=== PATIENT | female | born 1960 | race Caucasian/White ===

== ENCOUNTER 2016-12-31 13:28 | Observation (INO) | payer BC ==
[2016-12-31] MEDS ORDERED: Sodium Chloride 0.9% 10 ML Syringe FLUSH PRN (13:42)
--- NOTE | 2016-12-31 14:12 | EDM.PDOC ---
ED HPI GENERAL MEDICAL PROBLEM - General Chief Complaint: General Stated Complaint: elevated potassium, heart palpatations Time Seen by Provider: 12/31/16 13:32 Source of Information: Reports: Patient History Limitations: Reports: No Limitations - History of Present Illness INITIAL COMMENTS - FREE TEXT/NARRATIVE: Patient sent to ER due to hyperkalemia (5.9) that was noted at [facility] visit. Patient was at clinic for routine physical. Says she needed it prior to seeing from Internal Medicine. She had no specific complaints or changes related to today's clinic visit. Denies new medicines/supplements/dietary changes. No recent illnesses. When asked if anything else has changed, she thinks that she may be having some more palpitations and muscles cramps that "usual". No history of hyperkalemia in past. - Related Data Allergies Allergy/AdvReac Type Severity Reaction Status Date / Time cephalexin [From Keflex] Allergy Rash Verified 12/31/16 13:31 ciprofloxacin [From Cipro] Allergy Rash Verified 12/31/16 13:31 Latex, Natural Rubber Allergy Rash Verified 12/31/16 13:31 [id number] Reductase Allergy Muscle Verified 12/31/16 13:31 Inhibitor Aches Home Meds: Home Meds Aspirin [Children's Aspirin] 81 mg PO DAILY 12/31/16 [History] Azelaic Acid [Finacea] 1 applic TOP DAILY 12/31/16 [History] Cholecalciferol (Vitamin D3) [Vitamin D3] 2,000 unit PO QAM 12/31/16 [History] Clopidogrel Bisulfate [Clopidogrel] 75 mg PO QAM 12/31/16 [History] Cyanocobalamin/FA/Pyridoxine [Folbic] 1 tab PO MOWEFR@0800 12/31/16 [History] Diclofenac Sodium 1 applic TOP TID PRN 12/31/16 [History] Divalproex Sodium [Depakote ER] 250 mg PO BID 12/31/16 [History] Divalproex Sodium [Divalproex Sodium ER] 250 mg PO DAILY PRN 12/31/16 [History] Enalapril Maleate [Enalapril Maleate] 20 mg PO QAM 12/31/16 [History] Fluconazole [Diflucan] 150 mg PO DAILY PRN 12/31/16 [History] Gabapentin [Neurontin] 3 tab PO BEDTIME 12/31/16 [History] Gabapentin [Neurontin] 300 mg PO BEDTIME PRN 12/31/16 [History] Iron,Carbonyl/Ascorbic Acid [Vitron-C Tablet] 1 tab PO BID 12/31/16 [History] Isosorbide Mononitrate [Imdur] 60 mg PO BID 12/31/16 [History] Linagliptin [Tradjenta] 5 mg PO QAM 12/31/16 [History] Metoprolol Succinate 25 mg PO BID 12/31/16 [History] Nitroglycerin [Nitrostat] 0.4 mg PO ASDIRECTED PRN 12/31/16 [History] Pantoprazole Sodium 40 mg PO QAM 12/31/16 [History] Spironolactone [Aldactone] 25 mg PO TID 12/31/16 [History] Venlafaxine HCl [Venlafaxine ER] 150 mg PO QAM 12/31/16 [History] metFORMIN HCl [Metformin HCl] 500 mg PO BID 12/31/16 [History] traZODone 50 mg PO BEDTIME PRN 12/31/16 [History] traZODone HCl [Trazodone HCl] 50 mg PO BEDTIME 12/31/16 [History] Past Medical History Cardiovascular History: Reports: CAD, Hypertension, [place], Stents Gastrointestinal History: Reports: GERD Neurological History: Reports: Migraines, Neuropathy, Peripheral Psychiatric History: Reports: Anxiety, Depression Endocrine/Metabolic History: Reports: Diabetes, Type II Dermatologic History: Reports: Other (See Below) (Rosacea) - Past Surgical History GI Surgical History: Reports: Bariatric Procedure Social & Family History - Family History HEENT: Reports: Impaired Vision Cardiac: Reports: CAD, High Cholesterol, Hypertension, [place] Psychiatric: Reports: Anxiety, Depression Endocrine/Metabolic: Reports: Diabetes, type II Oncologic: Reports: Colon, Lung, Skin - Tobacco Use Smoking Status *Q: Never Smoker Second Hand Smoke Exposure: Yes - Caffeine Use Caffeine Use: Reports: Other (yes) - Alcohol Use Total Drinks Per Week Comment: Rare alcohol - Recreational Drug Use Recreational Drug Use: No Drug Use in Last 12 Months: No ED ROS GENERAL - Review of Systems Review Of Systems: See Below Constitutional: Reports: No Symptoms HEENT: Reports: Glasses Respiratory: Reports: No Symptoms Cardiovascular: Reports: Palpitations (intermittent palpitations, long standing. ). Denies: Chest Pain, Dyspnea on Exertion, Lightheadedness, Syncope GI/Abdominal: Reports: No Symptoms, Other (history of gastric bypass, can have irritable gut/stools depending one what she eats. ) : Reports: No Symptoms Musculoskeletal: Reports: Other (long standing intermittent muscle cramps) Skin: Reports: No Symptoms Neurological: Reports: Numbness (long standing neuropathy) Psychiatric: Reports: No Symptoms Hematologic/Lymphatic: Reports: No Symptoms ED EXAM, GENERAL - Physical Exam Exam: See Below Exam Limited By: No Limitations General Appearance: Alert, WD/WN, No Apparent Distress Eye Exam: Bilateral Eye: EOMI, PERRL Ears: Normal External Exam Nose: Normal Inspection Throat/Mouth: Normal Inspection, Normal Voice, No Airway Compromise Head: Atraumatic, Normocephalic Neck: Normal Inspection, Supple, Non-Tender, Full Range of Motion Respiratory/Chest: No Respiratory Distress, Lungs Clear, Normal Breath Sounds, No Accessory Muscle Use Cardiovascular: Normal Peripheral Pulses, Regular Rate, Rhythm, No Murmur Peripheral Pulses: 2+: Radial (L), Radial (R), Dorsalis Pedis (L), Dorsalis Pedis (R) GI/Abdominal: Normal Bowel Sounds, Soft, Non-Tender, No Distention (Female) Exam: Deferred Rectal (Female) Exam: Deferred Back Exam: Normal Inspection Extremities: Normal Inspection, Normal Range of Motion, Non-Tender, Normal Capillary Refill, Pedal Edema (minimal) Neurological: Alert, Oriented, Normal Cognition, Normal Gait, Other ( neuromuscular tone appropriate x4) Psychiatric: Normal Affect, Normal Mood Skin Exam: Warm, Dry, Intact, Normal Color EKG INTERPRETATION EKG Date: 12/31/16 Time: 13:48 Rhythm: NSR Rate (Beats/Min): 70 [place]: Normal P-Wave: Present QRS: Normal ST-T: Normal QT: Normal Comparison: NA - No Prior EKG Course - Vital Signs Last Recorded V/S: Last Vital Signs Temp 36.7 C 12/31/16 13:32 Pulse 76 12/31/16 13:32 Resp 16 12/31/16 13:32 BP 156/73 H 12/31/16 13:32 Pulse Ox 97 12/31/16 13:32 - Orders/Labs/Meds Orders: Active Orders 24 hr Category Date Time Status EKG Documentation Completion [RC] ASDIRECTED Care 12/31/16 13:43 Ordered CBC WITH AUTO DIFF [HEME] Stat Lab 12/31/16 13:42 Ordered COMPREHENSIVE METABOLIC PN,CMP [CHEM] Stat Lab 12/31/16 13:42 Ordered D-DIMER QUANTITATIVE [COAG] Stat Lab 12/31/16 13:43 Ordered MG [MAGNESIUM] [CHEM] Stat Lab 12/31/16 13:43 Ordered TROPONIN I [CHEM] Stat Lab 12/31/16 13:43 Ordered UA W/MICROSCOPIC [URIN] Stat Lab 12/31/16 13:42 Uncollected Sodium Chloride 0.9% [Saline Flush] Med 12/31/16 13:42 Ordered 10 ml FLUSH ASDIRECTED PRN Saline Lock Insert [OM.PC] Stat Oth 12/31/16 13:42 Ordered EKG 12 Lead [EK] Stat Ther 12/31/16 13:43 Ordered Medication Orders Sodium Chloride (Saline Flush) 10 ml FLUSH ASDIRECTED PRN PRN Reason: Keep Vein Open Meds: Medications Generic Name Dose Route Start Last Admin Trade Name Freq PRN Reason Stop Dose Admin Sodium Chloride 10 ml 12/31/16 13:42 Saline Flush FLUSH ASDIRECTED PRN Keep Vein Open - Re-Assessments/Exams Free Text/Narrative Re-Assessment/Exam: Potassium level noted to be 6.3 Also noted to have elevated BUN/Cr. CBC normal. Admitted observation for treatment of hyperkalemia. Departure - Departure Time of Disposition: 15:00 Disposition: Refer to Observation Clinical Impression: Hyperkalemia - Discharge Information Referrals: Claus Yancey MD [Primary Care Provider] - - Problem List & Annotations (1) Hyperkalemia SNOMED Code(s): 58156805 Code(s): E87.5 - HYPERKALEMIA Status: Acute Priority: High Current Visit: Yes Onset Date: Unknown Annotation/Comment:: Uncertain how long patient has had elevated potassium. States last labwork performed about a year ago. Renal insufficiency and Spironolactone may be contributing to elevated level. Will decrease Spironolactone dose while on observation. Plan at this time is to give Kayexalate and continue to monitor potassium level. (2) CAD (coronary artery disease) SNOMED Code(s): 40342995 Code(s): I25.10 - ATHSCL HEART DISEASE OF [place] CORONARY ARTERY W/O ANG PCTRS Status: Chronic Priority: Low Current Visit: No Annotation/Comment :: History of stent placement. (3) HTN (hypertension) SNOMED Code(s): 68622789 Code(s): I10 - ESSENTIAL (PRIMARY) HYPERTENSION Status: Chronic Priority : Low Current Visit: Yes (4) Depression SNOMED Code(s): 34702346 Code(s): F32.9 - MAJOR DEPRESSIVE DISORDER, SINGLE EPISODE, UNSPECIFIED Status: Chronic Priority: Low Current Visit: No (5) Rosacea SNOMED Code(s): 524085301 Code(s): L71.9 - ROSACEA, UNSPECIFIED Status: Chronic Priority: Low Current Visit: No (6) H/O bariatric surgery SNOMED Code(s): 402431338 Code(s): Z98.84 - BARIATRIC SURGERY STATUS Status: Chronic Priority: Low Current Visit: No (7) History of migraine SNOMED Code(s): 433448256 Code(s): Z86.69 - PERSONAL HISTORY OF DIS OF THE NERVOUS SYS AND SENSE ORGANS Status: Chronic Current Visit: No (8) GERD (gastroesophageal reflux disease) SNOMED Code(s): 958702134 Code(s): K21.9 - GASTRO-ESOPHAGEAL REFLUX DISEASE WITHOUT ESOPHAGITIS Status: Chronic Priority: Low Current Visit: No (9) Diabetes SNOMED Code(s): 13762139 Code(s): E11.9 - TYPE 2 DIABETES MELLITUS WITHOUT COMPLICATIONS Status: Chronic Priority: Low Current Visit: Yes Qualifiers: Diabetes mellitus type: type 2 (10) Peripheral neuropathy SNOMED Code(s): 821871186 Code(s): G62.9 - POLYNEUROPATHY, UNSPECIFIED Status: Chronic Priority: Low Current Visit: No (11) Renal insufficiency SNOMED Code(s): 751964002 Code(s): N28.9 - DISORDER OF KIDNEY AND URETER, UNSPECIFIED Status: Acute Priority: Medium Current Visit: Yes Onset Date: Unknown Annotation/ Comment:: Elevated BUN/Cr noted today. Patient denies any problems previously. - Problem List Review Problem List Initiated/Reviewed/Updated: Yes - My Orders Last 24 Hours: My Active Orders 12/31/16 13:42 CBC WITH AUTO DIFF [HEME] Stat COMPREHENSIVE METABOLIC PN,CMP [CHEM] Stat UA W/MICROSCOPIC [URIN] Stat Sodium Chloride 0.9% [Saline Flush] 10 ml FLUSH ASDIRECTED PRN Saline Lock Insert [OM.PC] Stat 12/31/16 13:43 EKG Documentation Completion [RC] ASDIRECTED D-DIMER QUANTITATIVE [COAG] Stat MG [MAGNESIUM] [CHEM] Stat TROPONIN I [CHEM] Stat EKG 12 Lead [EK] Stat - Assessment/Plan Admission H&P: Please use this note as an admission H&P Last 24 Hours: My Active Orders 12/31/16 13:42 CBC WITH AUTO DIFF [HEME] Stat COMPREHENSIVE METABOLIC PN,CMP [CHEM] Stat UA W/MICROSCOPIC [URIN] Stat Sodium Chloride 0.9% [Saline Flush] 10 ml FLUSH ASDIRECTED PRN Saline Lock Insert [OM.PC] Stat 12/31/16 13:43 EKG Documentation Completion [RC] ASDIRECTED D-DIMER QUANTITATIVE [COAG] Stat MG [MAGNESIUM] [CHEM] Stat TROPONIN I [CHEM] Stat EKG 12 Lead [EK] Stat Assessment:: Hyperkalemia in patient with multiple medical problems and newly observed renal insufficiency. Plan: Admitted Observation. Will continue to monitor while giving kayexalate. Spironolactone dose decreased from TID to BID. Patient is scheduled to follow up with Internal Medicine next week for continued care of her chronic medical conditions.
[2016-12-31 14:27] LABS: CHLORIDE,CL 106 mmol/L (98-107); SODIUM,NA 139 mmol/L (136-145)
[2016-12-31] MEDS ORDERED: Sodium Polystyrene Sulfonate 15 GM/60 ML Susp 60 ML Bot PO ONE ×3 (15:13→22:00)
[2016-12-31] MEDS ORDERED: Sodium Chloride 0.9% 1,000 ML IV ONE (15:15)
[2016-12-31] MEDS ORDERED: Divalproex Sodium 250 MG Tab.ER PO PRN (15:19)
[2016-12-31] MEDS ORDERED: Gabapentin 300 MG Cap PO PRN (15:19)
[2016-12-31] MEDS ORDERED: Nitroglycerin 0.4 MG Tab.SL SL PRN (15:19)
[2016-12-31] MEDS ORDERED: Non-Formulary Medication 1 Each (Diclofenac Sodium [Diclofenac Sodium] 1 APPLIC) TOP PRN (15:19)
[2016-12-31] MEDS ORDERED: traZODone 50 MG Tab PO PRN (15:19)
[2016-12-31] MEDS ORDERED: Acetaminophen 325 MG Tab PO PRN (16:00)
[2016-12-31] MEDS: Spironolactone 25 MG Tab PO SCH (17:08)
[2016-12-31] MEDS: metFORMIN 500 MG Tab PO SCH (17:08)
[2016-12-31] MEDS: Isosorbide Mononitrate 60 MG Tab.ER PO SCH (17:08)
[2016-12-31] MEDS: Metoprolol Succinate 25 MG Tab.ER PO SCH (17:08)
[2016-12-31] MEDS: Divalproex Sodium 250 MG Tab.ER PO SCH (17:08)
[2016-12-31] MEDS ORDERED: Gabapentin 300 MG Cap PO SCH (20:00)
[2016-12-31] MEDS ORDERED: traZODone 50 MG Tab PO SCH (20:00)
[2017-01-01] MEDS: Divalproex Sodium 250 MG Tab.ER PO SCH (07:44)
[2017-01-01] MEDS: Isosorbide Mononitrate 60 MG Tab.ER PO SCH (07:46)
[2017-01-01] MEDS: metFORMIN 500 MG Tab PO SCH (07:46)
[2017-01-01] MEDS: Spironolactone 25 MG Tab PO SCH (07:48)
[2017-01-01] MEDS: Metoprolol Succinate 25 MG Tab.ER PO SCH (07:49)
[2017-01-01] MEDS ORDERED: Aspirin 81 MG Tab.Chew PO SCH (08:00)
[2017-01-01] MEDS ORDERED: Enalapril 5 MG Tab PO SCH (08:00)
[2017-01-01] MEDS ORDERED: Clopidogrel 75 MG Tab PO SCH (08:00)
[2017-01-01] MEDS ORDERED: Pantoprazole 40 MG Tab.CR PO SCH (08:00)
[2017-01-01] MEDS ORDERED: Venlafaxine 75 MG Cap.ER PO SCH (08:00)
--- NOTE | 2017-01-01 09:20 | PCM.DCSUM1 ---
Discharge Summary - Hospital Course HPI Initial Comments: See Emergency room note/admission H&P Brief History: See emergency room note/admission H&P - Discharge Data Discharge Date: 01/01/17 Discharge Disposition: Home, Self-Care 01 Condition: Good - Discharge Diagnosis/Problem(s) (1) Hyperkalemia SNOMED Code(s): 78973689 ICD Code: E87.5 - HYPERKALEMIA Status: Acute Priority: High Current Visit: Yes Onset Date: Unknown Problem Details: Excellent results with Kayexalate therapy with normal potassium level this morning. Her creatinine level has also improved with decreased spironolactone therapy. Various therapeutic options were discussed with the patient, including initiation of additional low-dose Lasix therapy and continued decreased spironolactone at discharge. Patient does not wish to have any additional diuretic at this time with spironolactone apparently prescribed for dependent edema? She denies any previous history of CHF. Patient is both on enalapril and spironolactone, which can cause hyperkalemia and decreased renal function. Close follow-up by her regular provider with appointment already scheduled for 01/06. Follow-up blood work as per discharge instructions. Patient may need further workup and treatment, including echocardiogram, additional Lasix therapy, etc. depending on her follow-up blood work results. She does not need a work excuse by her history (2) Renal insufficiency SNOMED Code(s): 975791215 ICD Code: N28.9 - DISORDER OF KIDNEY AND URETER, UNSPECIFIED Status: Acute Priority: Medium Current Visit: Yes Onset Date: Unknown Problem Details : Improved renal profile today as above. Note probable diabetic nephropathy with history of diabetes as below (3) HTN (hypertension) SNOMED Code(s): 09711818 ICD Code: I10 - ESSENTIAL (PRIMARY) HYPERTENSION Status: Chronic Priority : Medium Current Visit: Yes Problem Details: Blood pressures were under good control during this hospitalization despite decrease of her spironolactone with close follow-up by her regular provider as above Qualifiers: Hypertension type: essential hypertension Qualified Code(s): I10 - Essential (primary) hypertension (4) CAD (coronary artery disease) SNOMED Code(s): 86527500 ICD Code: I25.10 - ATHSCL HEART DISEASE OF [place] CORONARY ARTERY W/O ANG PCTRS Status: Chronic Priority: Medium Current Visit: Yes Problem Details: No chest pain or anginal complaints, including prior to admission. No activity restrictions at this time. Continued close follow-up by her regular provider. Note status post PTCA/stent (5) GERD (gastroesophageal reflux disease) SNOMED Code(s): 782081205 ICD Code: K21.9 - GASTRO-ESOPHAGEAL REFLUX DISEASE WITHOUT ESOPHAGITIS Status: Chronic Priority: Medium Current Visit: Yes Problem Details: Stable by history. Consider change of her pantoprazole therapy to Pepcid at follow up with her regular provider secondary to her previous history of PTCA/ stent and current Plavix therapy Qualifiers: Esophagitis presence: without esophagitis Qualified Code(s): K21.9 - Gastro -esophageal reflux disease without esophagitis (6) Peripheral neuropathy SNOMED Code(s): 455940322 ICD Code: G62.9 - POLYNEUROPATHY, UNSPECIFIED Status: Chronic Priority: Medium Current Visit: Yes Problem Details: Stable by history. Probable diabetic nephropathy component. Current Neurontin therapy needs to be clarified at follow-up Qualifiers: Peripheral neuropathy type: polyneuropathy, other Qualified Code(s): G62.89 - Other specified polyneuropathies (7) Diabetes mellitus SNOMED Code(s): 16414106 ICD Code: E11.9 - TYPE 2 DIABETES MELLITUS WITHOUT COMPLICATIONS Status: Chronic Priority: Medium Current Visit: Yes Problem Details: Stable by history. Close follow-up by regular providers, including her renal function, etc. as above Qualifiers: Diabetes mellitus type: type 2 Diabetes mellitus complication status: with kidney complications Diabetes mellitus complication detail: with chronic kidney disease Diabetes mellitus watermelon inspector insulin use: without residential use Chronic kidney disease stage: stage 2 (mild) Qualified Code(s): E11.22 - Type 2 diabetes mellitus with diabetic chronic kidney disease; N18.2 - Chronic kidney disease, stage 2 (mild); N18.2 - Chronic kidney disease, stage 2 (mild) (8) Osteoarthritis SNOMED Code(s): 512039883 ICD Code: M19.90 - UNSPECIFIED OSTEOARTHRITIS, UNSPECIFIED SITE Status: Chronic Priority: Medium Current Visit: Yes Problem Details: Stable by history Qualifiers: Osteoarthritis location: multiple joints Osteoarthritis type: primary Qualified Code(s): M15.0 - Primary generalized (osteo)arthritis (9) Microhematuria SNOMED Code(s): 658222755 ICD Code: R31.29 - OTHER MICROSCOPIC HEMATURIA Status: Acute Priority: Medium Current Visit: Yes Onset Date: 12/31/16 Problem Details: UA did show some microhematuria, however the patient denies any UTI symptoms. I did order urine culture and sensitivity today from same specimen with antibiotic therapy depending on these results - Patient Summary/Data Operative Procedure(s) Performed: None Complications: None Consults: None Labs Pending at D/C: Urine culture and sensitivity results as above Recommended Follow-up Testing/Procedures: As per discharge instructions Planned Operative Procedure(s) after DC: None Hospital Course: Patient was admitted to observation status on telemetry for her hyperkalemia with excellent results with Kayexalate therapy and decreased spironolactone therapy from a 3 times a day to twice a day basis as above. Patient denies any chest pain or anginal type symptoms during this hospitalization. No arrhythmia during this hospital course. Patient did have normal bowel movements at time of discharge with no abdominal complaints, hematochezia melena, etc. Close follow- up by her regular provider as per discharge instructions and as above - Patient Instructions Diet: Heart Healthy Diet Activity: As Tolerated Driving: May Drive Today Showering/Bathing: May Shower Notify Provider of: Nausea and/or Vomiting Other/Special Instructions: 1. Follow-up with your regular provider as already scheduled on 01/06 and contact his office later today concerning recommended blood work as below prior to that appointment. 2. CBC, comprehensive metabolic panel, BNP, CK, CK-MB, and troponin I recommended immediately prior to the above follow-up visit. 3. Discuss at the follow-up visit possible further workup and treatment, including possible echocardiogram, additional low- dose Lasix therapy, etc. depending on your follow-up blood work, etc. 4. Also discuss at the above follow-up the possibility of changing your pantoprasole to Pepcid secondary to your current Plavix therapy and history of PTCA/stent. 5. Clarify your gabapentin dose at follow-up. 6. Your urine has been set up for culture and sensitivity. Notify this facility, if you have not heard about these results within the next 72 hours and/or if you become symptomatic - Discharge Plan Home Medications: Home Meds Aspirin [Children's Aspirin] 81 mg PO DAILY 12/31/16 [History] Azelaic Acid [Finacea] 1 applic TOP DAILY 12/31/16 [History] Cholecalciferol (Vitamin D3) [Vitamin D3] 2,000 unit PO QAM 12/31/16 [History] Clopidogrel Bisulfate [Clopidogrel] 75 mg PO QAM 12/31/16 [History] Cyanocobalamin/FA/Pyridoxine [Folbic] 1 tab PO MOWEFR@0800 12/31/16 [History] Diclofenac Sodium 1 applic TOP TID PRN 12/31/16 [History] Divalproex Sodium [Depakote ER] 250 mg PO BID 12/31/16 [History] Divalproex Sodium [Divalproex Sodium ER] 250 mg PO DAILY PRN 12/31/16 [History] Enalapril Maleate 20 mg PO QAM 12/31/16 [History] Fluconazole [Diflucan] 150 mg PO DAILY PRN 12/31/16 [History] Gabapentin [Neurontin] 3 tab PO BEDTIME 12/31/16 [History] Gabapentin [Neurontin] 300 mg PO BEDTIME PRN 12/31/16 [History] Iron,Carbonyl/Ascorbic Acid [Vitron-C Tablet] 1 tab PO BID 12/31/16 [History] Isosorbide Mononitrate [Imdur] 60 mg PO BID 12/31/16 [History] Linagliptin [Tradjenta] 5 mg PO QAM 12/31/16 [History] Metoprolol Succinate 25 mg PO BID 12/31/16 [History] Nitroglycerin [Nitrostat] 0.4 mg PO ASDIRECTED PRN 12/31/16 [History] Pantoprazole Sodium 40 mg PO QAM 12/31/16 [History] Venlafaxine HCl [Venlafaxine ER] 150 mg PO QAM 12/31/16 [History] metFORMIN HCl [Metformin HCl] 500 mg PO BID 12/31/16 [History] traZODone 50 mg PO BEDTIME PRN 12/31/16 [History] traZODone HCl [Trazodone HCl] 50 mg PO BEDTIME 12/31/16 [History] Acetaminophen [Tylenol] 650 mg PO Q4H PRN #100 tablet 01/01/17 [Rx] Spironolactone [Aldactone] 25 mg PO BID tablet 01/01/17 [Rx] Patient Handouts: Hyperkalemia Forms: ED Department Discharge Referrals: Claus Yancey MD [Primary Care Provider] - - Discharge Summary/Plan Comment DC Time >30 min.: Yes (Coordination of care) Discharge Summary/Plan Comment: As above. Extensive precautions were given to the patient, who is in agreement with the treatment plan. See Patient Instructions for further treatment and plan. - General Info Date of Service: 01/01/17 Admission Dx/Problem (Free Text: Hyperkalemia Functional Status: Reports: Pain Controlled, Tolerating Diet, Ambulating, Urinating. Denies: New Symptoms, Incentive Spirometry Numeric/FACES Score: 0 - Review of Systems General: Reports: No Symptoms. Denies: Fever, Weakness, Fatigue, Malaise, Chills, Night Sweats, Appetite (Appetite good) HEENT: Reports: No Symptoms. Denies: Eye Pain, Headaches, Post Nasal Drip, Sinus Congestion, Sore Throat, Rhinitis, Visual Changes Pulmonary: Reports: No Symptoms. Denies: Shortness of Breath, Pleuritic Chest Pain, Cough, Sputum, Hemoptysis, Wheezing Cardiovascular: Reports: No Symptoms. Denies: Chest Pain, Palpitations, Dyspnea on Exertion, Orthopnea, PND, Edema, Lightheadedness Gastrointestinal: Reports: No Symptoms. Denies: Abdominal Pain, Constipation, Decreased Appetite, Diarrhea, Difficulty Swallowing, Flatus, Hematochezia, Melena, Nausea, Vomiting Genitourinary: Reports: No Symptoms. Denies: Dysuria, Frequency, Burning, Pain , Urgency, Hematuria, Retention, Flank Pain Musculoskeletal: Reports: No Symptoms. Denies: Neck Pain, Shoulder Pain, Arm Pain, Back Pain, Leg Pain Skin: Reports: No Symptoms. Denies: Diaphoresis, Bruising Neurological: Reports: No Symptoms. Denies: Confusion, Dizziness, Headache, Numbness, Paresthesia, Seizure, Syncope, Tingling, Weakness Psychiatric: Reports: No Symptoms. Denies: Confusion, Depression, Anxiety, Agitation, Cravings, Hallucinations, Suicidal Ideation, Homicidal Ideation - Patient Data Vitals - Most Recent: Last Vital Signs Temp 36.8 C 01/01/17 06:00 Pulse 61 01/01/17 07:49 Resp 15 01/01/17 06:00 BP 124/70 01/01/17 07:53 Pulse Ox 95 01/01/17 06:00 Vital Signs (72 hours) 12/31/16 12/31/16 12/31/16 13:32 13:42 14:00 Temperature [ Oral] Temperature [ 36.7 C Temporal] Pulse, Peripheral Pulse, 76 72 76 Peripheral [ Left Pulse Oximetry] Respiratory 16 15 17 Rate Blood Pressure Blood Pressure 156/73 H 139/72 149/77 H [Left Upper Arm ] O2 Sat by Pulse 97 98 99 Oximetry 12/31/16 12/31/16 12/31/16 14:15 14:30 14:45 Temperature [ Oral] Temperature [ Temporal] Pulse, Peripheral Pulse, 70 72 71 Peripheral [ Left Pulse Oximetry] Respiratory 13 12 16 Rate Blood Pressure Blood Pressure 152/64 H 152/74 H 152/97 H [Left Upper Arm ] O2 Sat by Pulse 100 100 100 Oximetry 12/31/16 12/31/16 12/31/16 15:00 17:08 21:18 Temperature [ 36.9 C Oral] Temperature [ 36.4 C Temporal] Pulse, 85 Peripheral Pulse, 67 75 Peripheral [ Left Pulse Oximetry] Respiratory 16 16 Rate Blood Pressure 144/77 H Blood Pressure 141/77 H 122/90 [Left Upper Arm ] O2 Sat by Pulse 100 98 Oximetry 01/01/17 01/01/17 01/01/17 06:00 07:49 07:53 Temperature [ 36.8 C Oral] Temperature [ Temporal] Pulse, 61 Peripheral Pulse, 61 Peripheral [ Left Pulse Oximetry] Respiratory 15 Rate Blood Pressure 124/70 124/70 Blood Pressure 124/70 [Left Upper Arm ] O2 Sat by Pulse 95 Oximetry Weight - Most Recent: 73.936 kg I&O - Last 24 hours: Intake & Output 12/31/16 01/01/17 01/01/17 22:59 06:59 14:59 Intake Total 700 720 Output Total 750 Balance -50 720 Imaging Impressions - Last 24 hrs: 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 shows normal sinus rhythm with heart rate in the 60s to 70s with no ectopy or arrhythmia EKG yesterday showed no acute ischemic changes with T-wave inversion in leads 3 and V1 with poor R-wave progression in the anterior leads Lab Results - Last 24 hrs: Laboratory Results - last 24 hr 12/31/16 12/31/16 01/01/17 Range/Units 16:15 21:05 07:35 Sodium 142 (136-145) mmol/L Potassium 4.7 D 4.6 (3.5-5.1) mmol/L Chloride 109 H (98-107) mmol/L Carbon Dioxide 27.7 (21.0-32.0) mmol/L BUN 15 (7-18) mg/dL Creatinine 1.33 H (0.51-1.17) mg/dL Est Cr Clr Drug Dosing 42.32 mL/min Estimated GFR (MDRD) 41 mL/min Glucose 156 H (74-106) mg/dL Calcium 8.5 (8.5-10.1) mg/dL Specimen Type Urinblad Urine Color Yellow Urine Appearance Clear Urine pH 7.5 (5.0-9.0) Ur Specific [place] 1.020 (1.005-1.030) Urine Protein Negative (NEGATIVE) mg/dL Urine Glucose (UA) Negative (NEGATIVE) mg/dL Urine Ketones Negative (NEGATIVE) mg/dL Urine Occult Blood Negative (NEGATIVE) Urine Nitrite Negative (NEGATIVE) Urine Bilirubin Negative (NEGATIVE) Urine Urobilinogen 1.0 (0.2-1.0) E.U./dL Ur Leukocyte Esterase Negative (NEGATIVE) Urine RBC 5-10 H /HPF Urine WBC 0-5 /HPF Ur Epithelial Cells Few /LPF Urine Bacteria Few (NONE TO FEW) /HPF Laboratory Tests 12/31/16 12/31/16 12/31/16 Range/Units 14:05 14:05 14:05 WBC 5.2 (4.0-10.2) K/uL RBC 4.11 (3.77-5.09) M/uL Hgb 12.0 (11.7-15.5) g/dL Hct 35.9 (34.0-46.0) % MCV 87.3 (84.0-98.0) fL MCH 29.2 (28.2-33.3) pg MCHC 33.4 (31.7-36.0) g/dL RDW 13.5 (11.2-14.1) % Plt Count 253 (150-350) K/uL Neut % (Auto) 59.8 (45.0-80.0) % Lymph % (Auto) 27.6 (10.0-50.0) % [place] % (Auto) 10.3 (2.0-14.0) % Eos % (Auto) 1.9 (0.0-5.0) % Baso % (Auto) 0.4 (0.0-2.0) % Neut # (Auto) 3.12 (1.40-7.00) K/uL Lymph # (Auto) 1.44 (0.50-3.50) K/uL [place] # (Auto) 0.54 (0.00-1.00) K/uL Eos # (Auto) 0.10 (0.00-0.50) K/uL Baso # (Auto) 0.02 (0.00-0.20) K/uL D-Dimer, Quantitative 258 (0-400) ng/mL Sodium 139 (136-145) mmol/L Potassium 6.3 H* (3.5-5.1) mmol/L Chloride 106 (98-107) mmol/L Carbon Dioxide 25.8 (21.0-32.0) mmol/L BUN 19 H (7-18) mg/dL Creatinine 1.71 H (0.51-1.17) mg/dL Est Cr Clr Drug Dosing TNP Estimated GFR (MDRD) 31 mL/min Glucose 148 H (74-106) mg/dL Calcium 8.8 (8.5-10.1) mg/dL Magnesium 1.9 (1.8-2.4) mg/dL Total Bilirubin 0.3 (0.2-1.0) mg/dL AST 21 (15-37) U/L ALT 26 (12-78) U/L Alkaline Phosphatase 110 (46-116) IU/L Troponin I 0.000 (0.000-0.056) ng/mL Total Protein 7.4 (6.4-8.2) g/dL Albumin 3.5 (3.4-5.0) g/dL Specimen Type Urine Color Urine Appearance Urine pH (5.0-9.0) Ur Specific [place] (1.005-1.030) Urine Protein (NEGATIVE) mg/dL Urine Glucose (UA) (NEGATIVE) mg/dL Urine Ketones (NEGATIVE) mg/dL Urine Occult Blood (NEGATIVE) Urine Nitrite (NEGATIVE) Urine Bilirubin (NEGATIVE) Urine Urobilinogen (0.2-1.0) E.U./dL Ur Leukocyte Esterase (NEGATIVE) Urine RBC /HPF Urine WBC /HPF Ur Epithelial Cells /LPF Urine Bacteria (NONE TO FEW) /HPF 12/31/16 12/31/16 01/01/17 Range/Units 16:15 21:05 07:35 WBC (4.0-10.2) K/uL RBC (3.77-5.09) M/uL Hgb (11.7-15.5) g/dL Hct (34.0-46.0) % MCV (84.0-98.0) fL MCH (28.2-33.3) pg MCHC (31.7-36.0) g/dL RDW (11.2-14.1) % Plt Count (150-350) K/uL Neut % (Auto) (45.0-80.0) % Lymph % (Auto) (10.0-50.0) % [place] % (Auto) (2.0-14.0) % Eos % (Auto) (0.0-5.0) % Baso % (Auto) (0.0-2.0) % Neut # (Auto) (1.40-7.00) K/uL Lymph # (Auto) (0.50-3.50) K/uL [place] # (Auto) (0.00-1.00) K/uL Eos # (Auto) (0.00-0.50) K/uL Baso # (Auto) (0.00-0.20) K/uL D-Dimer, Quantitative (0-400) ng/mL Sodium 142 (136-145) mmol/L Potassium 4.7 D 4.6 (3.5-5.1) mmol/L Chloride 109 H (98-107) mmol/L Carbon Dioxide 27.7 (21.0-32.0) mmol/L BUN 15 (7-18) mg/dL Creatinine 1.33 H (0.51-1.17) mg/dL Est Cr Clr Drug Dosing 42.32 Estimated GFR (MDRD) 41 mL/min Glucose 156 H (74-106) mg/dL Calcium 8.5 (8.5-10.1) mg/dL Magnesium (1.8-2.4) mg/dL Total Bilirubin (0.2-1.0) mg/dL AST (15-37) U/L ALT (12-78) U/L Alkaline Phosphatase (46-116) IU/L Troponin I (0.000-0.056) ng/mL Total Protein (6.4-8.2) g/dL Albumin (3.4-5.0) g/dL Specimen Type Urinblad Urine Color Yellow Urine Appearance Clear Urine pH 7.5 (5.0-9.0) Ur Specific [place] 1.020 (1.005-1.030) Urine Protein Negative (NEGATIVE) mg/dL Urine Glucose (UA) Negative (NEGATIVE) mg/dL Urine Ketones Negative (NEGATIVE) mg/dL Urine Occult Blood Negative (NEGATIVE) Urine Nitrite Negative (NEGATIVE) Urine Bilirubin Negative (NEGATIVE) Urine Urobilinogen 1.0 (0.2-1.0) E.U./dL Ur Leukocyte Esterase Negative (NEGATIVE) Urine RBC 5-10 H /HPF Urine WBC 0-5 /HPF Ur Epithelial Cells Few /LPF Urine Bacteria Few (NONE TO FEW) /HPF TEDDY Results - Last 24 hrs: Urine culture and sensitivity pending Med Orders - Current: Current Medications Acetaminophen (Tylenol) 650 mg PO Q4H PRN PRN Reason: analgesia/fever Last Admin: 01/01/17 07:51 Dose: 650 mg Aspirin (Aspirin) 81 mg PO DAILY [facility] Last Admin: 01/01/17 07:48 Dose: 81 mg [facility]id[facility] ([facility]) [facility] [place] Last Admin: 01/01/17 07:47 Dose: 75 mg Divalproex Sodium (Depakote Er) 250 mg PO BID [facility] Last Admin: 01/01/17 07:44 Dose: 250 mg Divalproex Sodium (Depakote Er) 250 mg PO DAILY PRN PRN Reason: migraine Enalapril Maleate (Vasotec) [facility] [place] Last Admin: 01/01/17 07:53 Dose: 20 mg Gabapentin (Neurontin) 900 mg PO BEDTIME [facility] Last Admin: 12/31/16 19:24 Dose: 900 mg Gabapentin (Neurontin) 300 mg PO BEDTIME PRN PRN Reason: Pain Isosorbide Mononitrate (Imdur) 60 mg PO BID [facility] Last Admin: 01/01/17 07:46 Dose: 60 mg Metformin HCl (Glucophage) 500 mg PO BID [facility] Last Admin: 01/01/17 07:46 Dose: 500 mg Metoprolol Succinate (Toprol Xl) 25 mg PO BID [facility] Last Admin: 01/01/17 07:49 Dose: 25 mg Nitroglycerin (Nitrostat) 0.4 mg SL ASDIRECTED PRN PRN Reason: Chest Pain Non-Formulary Medication (Diclofenac Sodium [Diclofenac Sodium]) 1 applic TOP TID PRN PRN Reason: Pain Pantoprazole Sodium (Protonix) 40 mg PO QAM [facility] Last Admin: 01/01/17 07:48 Dose: 40 mg Sodium Chloride (Saline Flush) 10 ml FLUSH ASDIRECTED PRN PRN Reason: Keep Vein Open Spironolactone (Aldactone) 25 mg PO BID [facility] Last Admin: 01/01/17 07:48 Dose: 25 mg Trazodone HCl (Trazodone) 50 mg PO BEDTIME PRN PRN Reason: Insomnia Trazodone HCl (Trazodone) 50 mg PO BEDTIME [facility] Last Admin: 12/31/16 19:24 Dose: 50 mg Venlafaxine HCl (Effexor Xr) 150 mg PO [facility] Last Admin: 01/01/17 07:45 Dose: 150 mg Discontinued Medications Sodium Chloride (Normal Saline) 1,000 mls @ 75 mls/hr IV .BOLUS ONE Stop: 01/01/17 04:34 Last Admin: 12/31/16 16:00 Dose: 75 mls/hr Sodium Polystyrene Sulfonate (Kayexalate) 15 gm PO ONETIME ONE Stop: 12/31/16 15:14 Last Admin: 12/31/16 16:02 Dose: 15 gm Sodium Polystyrene Sulfonate (Kayexalate) 15 gm PO ONETIME ONE Stop: 12/31/16 18:01 Last Admin: 12/31/16 17:13 Dose: 15 gm Sodium Polystyrene Sulfonate (Kayexalate) 15 gm PO ONETIME ONE Stop: 12/31/16 22:01 Last Admin: 12/31/16 21:31 Dose: Not Given - Exam Quality Assessment: Reports: DVT Prophylaxis. Denies: Supplemental Oxygen, Central Line/PICC, Urine Catheter, Skin Breakdown, Restraints General: Reports: Alert, Oriented, Cooperative, No Acute Distress HEENT: Reports: Pupils Equal, Pupils Reactive, EOMI, Mucous Membr. Moist/[place]: Reports: Supple, Trachea Midline, No JVD, No Thyromegaly, +2 Carotid Pulse wo Bruit. Denies: Lymphadenopathy Lungs: Reports: Clear to Auscultation, Normal Respiratory Effort. Denies: Rhonchi, Rub Cardiovascular: Reports: Regular Rate, Regular Rhythm, No Murmurs. Denies: Gallops, Rubs GI/Abdominal Exam: Normal Bowel Sounds, Soft, Non-Tender, No Organomegaly, No Distention, No Abnormal Bruit, No Mass, Pelvis Stable. No: Guarding (Female) Exam: Deferred Rectal (Female) Exam: Deferred Back Exam: Reports: Normal Inspection, Full Range of Motion. Denies: CVA Tenderness (L), CVA Tenderness (R), Muscle Spasm Extremities: Normal Inspection, Normal Range of Motion, Non-Tender, No Pedal Edema, Normal Capillary Refill. No: Geovanni's Sign Skin: Reports: Warm, Dry, Intact Neurological: Reports: No New Focal Deficit Psy/Mental Status: Reports: Alert, Normal Affect, Normal Mood *Q Meaningful Use (DIS) - VTE *Q VTE Criteria *Q: - Stroke *Q Stroke Criteria *Q: - AMI *Q AMI Criteria *Q:
== END 2017-01-01 10:55 | disposition home or self-care (01) ==
LOC: LL.ED 13:28 → LL.MS 14:59
PROVIDERS: ADMIT Emergency Medicine; ATTEND Family Medicine
DX: E87.5 Hyperkalemia (principal); I25.10 Atherosclerotic heart disease of native coronary artery without angina pectoris; K21.9 Gastro-esophageal reflux disease without esophagitis; G62.89 Other specified polyneuropathies; E11.22 Type 2 diabetes mellitus with diabetic chronic kidney disease; I12.9 Hypertensive chronic kidney disease with stage 1 through stage 4 chronic kidney disease, or unspecified chronic kidney disease; N18.2 Chronic kidney disease, stage 2 (mild); R31.29 Other microscopic hematuria; M15.0 Primary generalized (osteo)arthritis; F41.9 Anxiety disorder, unspecified; F32.9 Major depressive disorder, single episode, unspecified; I21.9 Acute myocardial infarction, unspecified; G62.9 Polyneuropathy, unspecified; Z79.82 Long term (current) use of aspirin; Z79.899 Other long term (current) drug therapy; Z79.84 Long term (current) use of oral hypoglycemic drugs; Z88.1 Allergy status to other antibiotic agents; Z91.040 Latex allergy status; Z88.8 Allergy status to other drugs, medicaments and biological substances; Z98.84 Bariatric surgery status; E61.1 Iron deficiency; E11.9 Type 2 diabetes mellitus without complications
CPT/HCPCS: 36000; 36415; 80048; 80053; 80061; 81001; 82728; 83036; 83735; 84132; 84484; 85025; 85027; 85379; 87086; 93005; 99285; A9270; G0378; J7030

== ENCOUNTER 2017-05-25 19:49 | Emergency (ER) | payer BC, OTHER ==
[2017-05-25] MEDS ORDERED: Ondansetron 4 MG Tab.DIS PO ONE (20:19)
[2017-05-25] MEDS ORDERED: Acetaminophen/oxyCODONE 325-5 MG Tab PO ONE (20:19)
--- NOTE | 2017-05-25 21:01 | EDM.PDOC ---
ED HPI GENERAL MEDICAL PROBLEM - General Chief Complaint: Upper Extremity Injury/Pain Stated Complaint: fall, left shoulder pain Time Seen by Provider: 05/25/17 20:11 Source of Information: Reports: Patient History Limitations: Reports: No Limitations - History of Present Illness INITIAL COMMENTS - FREE TEXT/NARRATIVE: Patient fell onto left side of her body after tripping on wheelchair in patient room this evening. Complaint of left shoulder pain. Some soreness of left elbow. Is on Plavix as well as aspirin. Did not hit head. No LOC. Left arm initially felt numb but that resolved. left shoulder Pain Score (Numeric/FACES): 5 - Related Data Allergies Allergy/AdvReac Type Severity Reaction Status Date / Time cephalexin [From Keflex] Allergy Rash Verified 05/25/17 20:01 ciprofloxacin [From Cipro] Allergy Rash Verified 05/25/17 20:01 Latex, Natural Rubber Allergy Rash Verified 05/25/17 20:01 Tspfnge-Szq-Iac Reductase Allergy Muscle Verified 05/25/17 20:01 Inhibitor Aches Home Meds: Home Meds Aspirin [Children's Aspirin] 81 mg PO DAILY 12/31/16 [History] Azelaic Acid [Finacea] 1 applic TOP DAILY 12/31/16 [History] Cholecalciferol (Vitamin D3) [Vitamin D3] 2,000 unit PO QAM 12/31/16 [History] Clopidogrel Bisulfate [Clopidogrel] 75 mg PO QAM 12/31/16 [History] Cyanocobalamin/FA/Pyridoxine [Folbic] 1 tab PO MOWEFR@0800 12/31/16 [History] Diclofenac Sodium 1 applic TOP TID PRN 12/31/16 [History] Divalproex Sodium [Depakote ER] 250 mg PO BID 12/31/16 [History] Divalproex Sodium [Divalproex Sodium ER] 250 mg PO DAILY PRN 12/31/16 [History] Enalapril Maleate 20 mg PO QAM 12/31/16 [History] Fluconazole [Diflucan] 150 mg PO DAILY PRN 12/31/16 [History] Gabapentin [Neurontin] 3 tab PO BEDTIME 12/31/16 [History] Gabapentin [Neurontin] 300 mg PO BEDTIME PRN 12/31/16 [History] Iron,Carbonyl/Ascorbic Acid [Vitron-C Tablet] 1 tab PO BID 12/31/16 [History] Isosorbide Mononitrate [Imdur] 60 mg PO BID 12/31/16 [History] Linagliptin [Tradjenta] 5 mg PO QAM 12/31/16 [History] Metoprolol Succinate 25 mg PO BID 12/31/16 [History] Nitroglycerin [Nitrostat] 0.4 mg PO ASDIRECTED PRN 12/31/16 [History] Pantoprazole Sodium 40 mg PO QAM 12/31/16 [History] Venlafaxine HCl [Venlafaxine ER] 150 mg PO QAM 12/31/16 [History] metFORMIN HCl [Metformin HCl] 500 mg PO BID 12/31/16 [History] traZODone 50 mg PO BEDTIME PRN 12/31/16 [History] traZODone HCl [Trazodone HCl] 50 mg PO BEDTIME 12/31/16 [History] Acetaminophen [Tylenol] 650 mg PO Q4H PRN #100 tablet 01/01/17 [Rx] oxyCODONE HCl/Acetaminophen [Percocet 5-325 mg Tablet] 1 each PO ASDIRECTED PRN #15 tablet 05/25/17 [Rx] Past Medical History HEENT History: Reports: None Cardiovascular History: Reports: CAD, Hypertension, [place], Stents Gastrointestinal History: Reports: GERD 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: Musculoskeletal History: Reports: Back Pain, Chronic Neurological History: Reports: Migraines, Neuropathy, Peripheral Psychiatric History: Reports: Anxiety, Depression Endocrine/Metabolic History: Reports: Diabetes, Type II Dermatologic History: Reports: Other (See Below) - Past Surgical History GI Surgical History: Reports: Bariatric Procedure Social & Family History - Family History HEENT: Reports: Impaired Vision Cardiac: Reports: CAD, High Cholesterol, Hypertension, [place] Psychiatric: Reports: Anxiety, Depression Endocrine/Metabolic: Reports: Diabetes, type II Oncologic: Reports: Colon, Lung, Skin - Tobacco Use Smoking Status *Q: Never Smoker Second Hand Smoke Exposure: Yes - Caffeine Use Caffeine Use: Reports: Soda - Recreational Drug Use Recreational Drug Use: No Drug Use in Last 12 Months: No Review of Systems - Review of Systems Review Of Systems: See Below Constitutional: Reports: No Symptoms Eyes: Reports: No Symptoms Ears: Reports: No Symptoms Nose: Reports: No Symptoms Mouth/Throat: Reports: No Symptoms Respiratory: Reports: No Symptoms Cardiovascular: Reports: No Symptoms. Denies: Chest Pain GI/Abdominal: Reports: No Symptoms Genitourinary: Reports: No Symptoms Musculoskeletal: Reports: Shoulder Pain, Arm Pain, Joint Pain, Joint Swelling. Denies: Neck Pain, Back Pain, Hand Pain, Leg Pain, Foot Pain Skin: Reports: Bruising Neurological: Reports: No Symptoms Psychiatric: Reports: No Symptoms ED EXAM, GENERAL - Physical Exam Exam: See Below Exam Limited By: No Limitations General Appearance: Alert, Moderate Distress Eye Exam: Bilateral Eye: EOMI, PERRL Ears: Normal External Exam Nose: Normal Inspection. No: Nasal Deformity, Nasal Swelling, Nasal Drainage Throat/Mouth: Normal Lips, Normal Voice, No Airway Compromise Head: Atraumatic, Normocephalic Neck: Normal Inspection, Supple, Non-Tender, Full Range of Motion Respiratory/Chest: No Respiratory Distress, Lungs Clear, Normal Breath Sounds, No Accessory Muscle Use, Chest Non-Tender Cardiovascular: Normal Peripheral Pulses, Regular Rate, Rhythm, No Murmur Peripheral Pulses: 2+: Radial (L), Radial (R) GI/Abdominal: Soft, Non-Tender (Female) Exam: Deferred Rectal (Female) Exam: Deferred Back Exam: No: CVA Tenderness (L), CVA Tenderness (R), Paraspinal Tenderness, Vertebral Tenderness Extremities: Normal Capillary Refill, Other (tender with palpation left shoulder and left elbow. Some swelling/early bruising noted left elbow and right elbow. ). No: Leg Pain, Pallor Neurological: Alert, Oriented, Normal Cognition, Normal Gait, Other (Unable to test ROM left arm due to pain. ) Psychiatric: Anxious Skin Exam: Warm, Dry, Ecchymosis (elbows) Course - Vital Signs Last Recorded V/S: Last Vital Signs Temp 36.7 C 05/25/17 19:54 Pulse 67 05/25/17 19:54 Resp 18 05/25/17 19:54 BP 183/76 H 05/25/17 19:54 Pulse Ox 98 05/25/17 19:54 - Orders/Labs/Meds Orders: Active Orders 24 hr Category Date Time Status Elbow 2V Lt [CR] Stat Exams 05/25/17 20:25 Ordered Shoulder Comp Lt [CR] Stat Exams 05/25/17 20:05 Taken Shoulder wo Cont Lt [CT] Stat Exams 05/25/17 20:53 Ordered Meds: Medications Discontinued Medications Generic Name Dose Route Start Last Admin Trade Name Freq PRN Reason Stop Dose Admin Ondansetron HCl 4 mg 05/25/17 20:19 05/25/17 20:22 Zofran Odt PO 05/25/17 20:20 4 mg ONETIME ONE Administration Oxycodone/Acetaminophen 2 tab 05/25/17 20:19 05/25/17 20:27 Percocet 325-5 Mg PO 05/25/17 20:20 2 tab ONETIME ONE Administration - Radiology Interpretation Free Text/Narrative:: Xrays revealed non-displaced proximal shoulder fracture. Discussed findings with from [facility]. He requested CT of shoulder for better view of fracture. - Re-Assessments/Exams Free Text/Narrative Re-Assessment/Exam: 05/25/17 21:09 Patient given PO Percocet/Zofran. CT requested by /Dio for further views of fracture. Shoulder immobilizer placed on patient. wants patient to follow up with him on at [facility] in [place]. Departure - Departure Time of Disposition: 21:24 Disposition: Home, Self-Care 01 Condition: Good Clinical Impression: Fracture, humerus, head Qualifiers: Encounter type: initial encounter Fracture type: closed Laterality: left Qualified Code(s): S42.292A - Other displaced fracture of upper end of left humerus, initial encounter for closed fracture - Discharge Information Prescriptions: oxyCODONE HCl/Acetaminophen [Percocet 5-325 mg Tablet] 1 each PO ASDIRECTED PRN #15 tablet PRN Reason: Pain Instructions: Humerus Fracture Treated With Immobilization, [id number] Referrals: PCP,Unknown [Primary Care Provider] - Forms: ED Department Discharge Additional Instructions: Call [place] to arrange for appointment on to see from [facility]. If you wish to see someone sooner, your other option would be to present to [facility] in [place], however is aware of the problem and has already looked at the Xrays. Call your primary clinic tomorrow to arrange for follow up for any other concerns/pain management. It will likely be more comfortable to sleep in a recliner, use pillows to pad for comfort. OK to apply ice to shoulder if it helps the discomfort. - My Orders Last 24 Hours: My Active Orders 05/25/17 20:05 Shoulder Comp Lt [CR] Stat 05/25/17 20:25 Elbow 2V Lt [CR] Stat 05/25/17 20:53 Shoulder wo Cont Lt [CT] Stat - Assessment/Plan Last 24 Hours: My Active Orders 05/25/17 20:05 Shoulder Comp Lt [CR] Stat 05/25/17 20:25 Elbow 2V Lt [CR] Stat 05/25/17 20:53 Shoulder wo Cont Lt [CT] Stat
== END 2017-05-25 21:53 | disposition home or self-care (01) ==
LOC: LL.ED 19:49
DX: S42.252A Displaced fracture of greater tuberosity of left humerus, initial encounter for closed fracture (principal); S50.02XA Contusion of left elbow, initial encounter; S50.01XA Contusion of right elbow, initial encounter; K21.9 Gastro-esophageal reflux disease without esophagitis; I10 Essential (primary) hypertension; I25.2 Old myocardial infarction; E11.42 Type 2 diabetes mellitus with diabetic polyneuropathy; Z88.1 Allergy status to other antibiotic agents; Z88.8 Allergy status to other drugs, medicaments and biological substances; Z91.040 Latex allergy status; Z79.82 Long term (current) use of aspirin; Z79.899 Other long term (current) drug therapy; W05.0XXA Fall from non-moving wheelchair, initial encounter
CPT/HCPCS: 73030-LT; 73070-LT; 73200-LT; 99284; A9270-GY

== ENCOUNTER 2018-11-19 17:24 | Emergency (ER) | payer OTHER ==
--- NOTE | 2018-11-19 17:33 | EDM.PDOC ---
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 apparently her potassium was elevated up to 6 and nephrology rechecked potassium is 5.8 at this time patient was examined and will be treated Onset: Gradual Duration: Chronic, Constant Location: Reports: Abdomen Severity: Moderate Improves with: Reports: None Worsens with: Reports: None Back Pain Score (Numeric/FACES): 4 - Related Data Allergies Allergy/AdvReac Type Severity Reaction Status Date / Time cephalexin [From Keflex] Allergy Rash Verified 05/25/17 20:01 ciprofloxacin [From Cipro] Allergy Rash Verified 05/25/17 20:01 Latex, Natural Rubber Allergy Rash Verified 05/25/17 20:01 [id number] Reductase Allergy Muscle Verified 05/25/17 20:01 Inhibitor Aches acrylic Allergy Rash Uncoded 11/19/18 17:34 Home Meds: Home Meds Aspirin [Children's Aspirin] 81 mg PO DAILY 12/31/16 [History] Azelaic Acid [Finacea] 1 applic TOP DAILY 12/31/16 [History] Clopidogrel Bisulfate [Clopidogrel] 75 mg PO QAM 12/31/16 [History] Cyanocobalamin/FA/Pyridoxine [Folbic] 1 tab PO MOWEFR@0800 12/31/16 [History] Diclofenac Sodium 1 applic TOP TID PRN 12/31/16 [History] Divalproex Sodium [Depakote ER] 250 mg PO BID 12/31/16 [History] Gabapentin [Neurontin] 3 tab PO BEDTIME 12/31/16 [History] Iron,Carbonyl/Ascorbic Acid [Vitron-C Tablet] 1 tab PO BID 12/31/16 [History] Isosorbide Mononitrate [Imdur] 60 mg PO BID 12/31/16 [History] Metoprolol Succinate 25 mg PO BID 12/31/16 [History] Nitroglycerin [Nitrostat] 0.4 mg PO ASDIRECTED PRN 12/31/16 [History] Pantoprazole Sodium 40 mg PO QAM 12/31/16 [History] Venlafaxine HCl [Venlafaxine ER] 150 mg PO QAM 12/31/16 [History] metFORMIN HCl [Metformin HCl] 500 mg PO DAILY 12/31/16 [History] traZODone HCl [Trazodone HCl] 50 mg PO BEDTIME 12/31/16 [History] Acetaminophen [Tylenol] 650 mg PO Q4H PRN #100 tablet 01/01/17 [Rx] Cholecalciferol (Vitamin D3) [Vitamin D3] 5,000 unit PO DAILY 11/19/18 [History] Levocetirizine Dihydrochloride [Xyzal] 5 mg PO DAILY 11/19/18 [History] SitaGLIPtin [Januvia] 25 mg PO DAILY 11/19/18 [History] amLODIPine [Norvasc] 5 mg PO DAILY 11/19/18 [History] Past Medical History HEENT History: Reports: None Cardiovascular History: Reports: CAD, Hypertension, [place], Stents Gastrointestinal History: Reports: 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: Musculoskeletal History: Reports: Back Pain, Chronic Neurological History: Reports: Migraines, Neuropathy, Peripheral Psychiatric History: Reports: Anxiety, Depression Endocrine/Metabolic History: Reports: Diabetes, Type II Dermatologic History: Reports: Other (See Below) - Past Surgical History GI Surgical History: Reports: Bariatric Procedure Social & Family History - Family History HEENT: Reports: Impaired Vision Cardiac: Reports: CAD, High Cholesterol, Hypertension, [place] Psychiatric: Reports: Anxiety, Depression Endocrine/Metabolic: Reports: Diabetes, type II Oncologic: Reports: Colon, Lung, Skin - Caffeine Use Caffeine Use: Reports: Soda ED ROS GENERAL - Review of Systems Review Of Systems: See Below Constitutional: Reports: Malaise HEENT: Reports: No Symptoms Respiratory: Reports: No Symptoms Cardiovascular: Reports: No Symptoms Endocrine: Reports: No Symptoms, Other (History of diabetes mellitus) Musculoskeletal: Reports: No Symptoms Skin: Reports: No Symptoms Neurological: Reports: No Symptoms Psychiatric: Reports: No Symptoms Hematologic/Lymphatic: Reports: No Symptoms Immunologic: Reports: No Symptoms ED EXAM, GENERAL - Physical Exam Exam: See Below Exam Limited By: No Limitations General Appearance: Alert, WD/WN, No Apparent Distress Ears: Normal External Exam, Normal Canal, Hearing Grossly Normal, Normal TMs Nose: Normal Inspection, Normal Mucosa, No Blood Throat/Mouth: Normal Inspection, Normal Lips, Normal Teeth, Normal Gums, Normal Oropharynx, Normal Voice, No Airway Compromise Head: Atraumatic, Normocephalic Neck: Normal Inspection, Supple, Non-Tender, Full Range of Motion Respiratory/Chest: No Respiratory Distress, Lungs Clear, Normal Breath Sounds, No Accessory Muscle Use, Chest Non-Tender Cardiovascular: Normal Peripheral Pulses, Regular Rate, Rhythm, No Edema, No Gallop, No JVD, No Murmur, No Rub GI/Abdominal: Soft, Non-Tender, No Organomegaly, No Distention, No Abnormal Bruit, No Mass, Pelvis Stable (Female) Exam: Deferred Rectal (Female) Exam: Deferred Extremities: Normal Inspection, Normal Range of Motion, Non-Tender, Normal Capillary Refill, No Pedal Edema Neurological: Alert, Oriented, CN II-XII Intact, Normal Cognition, Normal Gait, Normal Reflexes, No Motor/Sensory Deficits Psychiatric: Normal Affect, Normal Mood Skin Exam: Warm, Dry, Intact, Normal Color, No Rash Lymphatic: No Adenopathy Course - Vital Signs Last Recorded V/S: Last Vital Signs Temp 98.4 F 11/19/18 17:24 Pulse 89 11/19/18 17:24 Resp 16 11/19/18 17:24 BP 182/97 H 11/19/18 17:24 Pulse Ox 99 11/19/18 17:24 - Orders/Labs/Meds Orders: Active Orders 24 hr Category Date Time Status Sodium Polystyrene Sulfonate [Kayexalate] Med 11/19/18 18:10 Once 15 gm PO ONETIME ONE Medication Orders Sodium Polystyrene Sulfonate (Kayexalate) 15 gm PO ONETIME ONE Stop: 11/19/18 18:11 Labs: Laboratory Tests 11/19/18 11/19/18 Range/Units 16:40 16:40 WBC 6.0 (4.0-10.2) K/uL RBC 4.00 (3.77-5.09) M/uL Hgb 11.1 L (11.7-15.5) g/dL Hct 33.8 L (34.0-46.0) % MCV 84.5 (84.0-98.0) fL MCH 27.8 L (28.2-33.3) pg MCHC 32.8 (31.7-36.0) g/dL RDW 14.7 H (11.2-14.1) % Plt Count 245 (150-350) K/uL Neut % (Auto) 60.3 (45.0-80.0) % Lymph % (Auto) 30.9 (10.0-50.0) % [place] % (Auto) 6.7 (2.0-14.0) % Eos % (Auto) 1.8 (0.0-5.0) % Baso % (Auto) 0.3 (0.0-2.0) % Neut # (Auto) 3.58 (1.40-7.00) K/uL Lymph # (Auto) 1.84 (0.50-3.50) K/uL [place] # (Auto) 0.40 (0.00-1.00) K/uL Eos # (Auto) 0.11 (0.00-0.50) K/uL Baso # (Auto) 0.02 (0.00-0.20) K/uL Sodium 141 (136-145) mmol/L Potassium 5.8 H* (3.5-5.1) mmol/L Chloride 105 (98-107) mmol/L Carbon Dioxide 26.4 (21.0-32.0) mmol/L BUN 28 H (7-18) mg/dL Creatinine 2.35 H (0.51-1.17) mg/dL Est Cr Clr Drug Dosing 22.91 mL/min Estimated GFR (MDRD) 21 mL/min Glucose 219 H (74-106) mg/dL Calcium 8.7 (8.5-10.1) mg/dL Total Bilirubin 0.3 (0.2-1.0) mg/dL AST 16 (15-37) U/L ALT 24 (12-78) U/L Alkaline Phosphatase 103 (46-116) IU/L Total Protein 7.5 (6.4-8.2) g/dL Albumin 3.5 (3.4-5.0) g/dL Meds: Medications Generic Name Dose Route Start Last Admin Trade Name Freq PRN Reason Stop Dose Admin Sodium Polystyrene Sulfonate 15 gm 11/19/18 18:10 Kayexalate PO 11/19/18 18:11 ONETIME ONE Departure - Departure Time of Disposition: 18:16 Disposition: Home, Self-Care 01 Condition: Poor Clinical Impression: Chronic renal failure, stage 4 (severe), Hyperkalemia Diabetes mellitus Qualifiers: Diabetes mellitus type: type 2 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 Diabetes mellitus complication status: with kidney complications Diabetes mellitus complication detail: with chronic kidney disease Chronic kidney disease stage: stage 2 (mild) Qualified Code(s): E11.22 - Type 2 diabetes mellitus with diabetic chronic kidney disease; N18.2 - Chronic kidney disease, stage 2 (mild) - Discharge Information *PRESCRIPTION DRUG MONITORING PROGRAM REVIEWED*: No *COPY OF PRESCRIPTION DRUG MONITORING REPORT IN PATIENT TONEY: No Referrals: Claus Yancey MD [Primary Care Provider] - Forms: ED Department Discharge Care Plan Goals: At this time Kayexalate 50 mg will be given patient will be sent home and will recheck her potassium tomorrow this was explained to the patient and agreed - My Orders Last 24 Hours: My Active Orders 11/19/18 18:10 Sodium Polystyrene Sulfonate [Kayexalate] 15 gm PO ONETIME ONE - Assessment/Plan Last 24 Hours: My Active Orders 11/19/18 18:10 Sodium Polystyrene Sulfonate [Kayexalate] 15 gm PO ONETIME ONE
[2018-11-19] MEDS ORDERED: Sodium Polystyrene Sulfonate 15 GM/60 ML Susp 60 ML Bot PO ONE (18:10)
== END 2018-11-19 18:30 | disposition home or self-care (01) ==
LOC: LL.ED 17:24
DX: E11.22 Type 2 diabetes mellitus with diabetic chronic kidney disease (principal); I12.9 Hypertensive chronic kidney disease with stage 1 through stage 4 chronic kidney disease, or unspecified chronic kidney disease; N18.4 Chronic kidney disease, stage 4 (severe); E87.5 Hyperkalemia; E11.40 Type 2 diabetes mellitus with diabetic neuropathy, unspecified; F41.9 Anxiety disorder, unspecified; I25.2 Old myocardial infarction; F32.9 Major depressive disorder, single episode, unspecified; Z91.040 Latex allergy status; Z88.1 Allergy status to other antibiotic agents; Z79.899 Other long term (current) drug therapy; Z88.8 Allergy status to other drugs, medicaments and biological substances; Z79.82 Long term (current) use of aspirin; Z79.84 Long term (current) use of oral hypoglycemic drugs
CPT/HCPCS: 36000; 36415; 80048; 80053; 85025; 99284; A9270-GY

== ENCOUNTER 2022-12-13 18:52 | Emergency (ER) | payer MEDICARE, OTHER ==
[2022-12-13] MEDS ORDERED: Albuterol/Ipratropium 3.0-0.5 MG/3 ML Neb Soln NEB ONE (18:55)
[2022-12-13] MEDS ORDERED: Albuterol/Ipratropium 3.0-0.5 MG/3 ML Neb Soln ONE (18:56)
[2022-12-13] MEDS ORDERED: Sodium Chloride 0.9% 10 ML Syringe FLUSH PRN (19:08)
[2022-12-13 19:37] LABS: BASOPHILS ABSOLUTE AUTO 0.02 K/uL (0.00-0.20); BASOPHILS PERCENT AUTO 0.2 % (0.0-2.0); EOSINOPHILS PERCENT AUTO 1.1 % (0.0-5.0); HEMOGLOBIN 9.2 g/dL (11.7-15.5); LYMPHOCYTES ABSOLUTE AUTO 1.13 K/uL (0.50-3.50); LYMPHOCYTES PERCENT AUTO 12.2 % (10.0-50.0); MEAN CORPUSCULAR HEMOGLOBIN 28.8 pg (28.2-33.3); MEAN CORPUSCULAR HGB CONC 32.9 g/dL (31.7-36.0); MEAN CORPUSCULAR VOLUME 87.8 fL (84.0-98.0); MONOCYTES ABSOLUTE AUTO 0.74 K/uL (0.00-1.00); NEUTROPHILS ABSOLUTE AUTO 7.26 K/uL (1.40-7.00); NEUTROPHILS PERCENT AUTO 78.5 % (45.0-80.0); PLATELET COUNT,PLT 184 K/uL (150-350); RED BLOOD CELL COUNT 3.19 M/uL (3.77-5.09); RED CELL DISTRIBUTION WIDTH 13.4 % (11.2-14.1); WHITE BLOOD CELL COUNT,WBC 9.3 K/uL (4.0-10.2)
[2022-12-13 19:53] LABS: PROTHROMBIN TIME 9.9 SEC (9.0-11.1)
[2022-12-13 19:57] LABS: INFLUENZA A NAA NEGATIVE (NEGATIVE); INFLUENZA B NAA NEGATIVE (NEGATIVE); RESPIRATORY SYNCYTIAL VIR NAA NEGATIVE (NEGATIVE)
[2022-12-13 19:58] LABS: ALANINE AMINOTRANSFERASE,ALT 27 U/L (12-78); ALBUMIN 2.7 g/dL (3.4-5.0); ALKALINE PHOSPHATASE 114 IU/L (46-116); ASPARTATE AMNIOTRANSFERASE,AST 17 U/L (15-37); BILIRUBIN TOTAL 0.3 mg/dL (0.2-1.0); CALCIUM 7.8 mg/dL (8.5-10.1); CARBON DIOXIDE,CO2 20.6 mmol/L (21.0-32.0); CHLORIDE,CL 107 mmol/L (98-107); GLUCOSE RANDOM 161 mg/dL (70-99); POTASSIUM,K 5.2 mmol/L (3.5-5.1); PRO B-TYPE NATRIUR PEPT,BNPPRO 14978 pg/mL (0-125); PROTEIN TOTAL,TP 6.5 g/dL (6.4-8.2); SODIUM,NA 139 mmol/L (136-145)
[2022-12-13 19:59] LABS: CORONAVIRUS COVID-19 NAA POSITIVE (NEGATIVE)
[2022-12-13 20:01] LABS: ANION GAP 16.6 meq/L (7-15); ESTIMATED GFR 8 mL/min (>=60)
[2022-12-13 20:08] LABS: BLOOD UREA NITROGEN,BUN 50 mg/dL (7-18)
[2022-12-13 20:12] LABS: CREATININE 5.34 mg/dL (0.51-1.17)
== END 2022-12-13 21:55 ==
LOC: LL.ED 18:52
DX: U07.1 COVID-19 (principal); I13.2 Hypertensive heart and chronic kidney disease with heart failure and with stage 5 chronic kidney disease, or end stage renal disease; E11.22 Type 2 diabetes mellitus with diabetic chronic kidney disease; N18.5 Chronic kidney disease, stage 5; I50.9 Heart failure, unspecified; R79.1 Abnormal coagulation profile; E87.5 Hyperkalemia; I25.10 Atherosclerotic heart disease of native coronary artery without angina pectoris; I25.2 Old myocardial infarction; K21.9 Gastro-esophageal reflux disease without esophagitis; E11.42 Type 2 diabetes mellitus with diabetic polyneuropathy; Z88.8 Allergy status to other drugs, medicaments and biological substances; Z88.1 Allergy status to other antibiotic agents; Z91.040 Latex allergy status; Z79.82 Long term (current) use of aspirin; Z79.899 Other long term (current) drug therapy
CPT/HCPCS: 0241U; 36415; 71046; 80053; 83880; 84484; 85025; 85610; 93005; 99285; J7620-GY